=== PATIENT | male | born 1975 | race Caucasian/White ===

== ENCOUNTER 2021-03-31 16:04 | Emergency (ER) | payer SELFPAY ==
[~2021-03-31] VITALS: Ht 190.5 cm; Wt 103.4 kg
[2021-03-31] MEDS ORDERED: OMEPRAZOLE20 MG PO (16:20)
--- NOTE | 2021-04-01 13:34 | EKG ---
[facility] [address] [facility] [place], [place] [address] Signed Normal sinus rhythm Normal ECG Confirmed by WAYLON FOX MD ([id number]) on 04/01/2021 1:34:31 PM Electronically Signed By: WAYLON FOX MD 04/01/21 1334 PATIENT NAME: CHRIS YODER Electrocardiogram DATE OF : 75 PHYSICIAN: WAYLON FOX MD REPORT #: [id number] REPORT IS CONFIDENTIAL AND NOT TO BE RELEASED WITHOUT AUTHORIZATION
== END 2021-03-31 20:40 | disposition home or self-care (01) ==
LOC: ED 16:04
DX: R07.9 Chest pain, unspecified (principal); Z87.891 Personal history of nicotine dependence; Z79.899 Other long term (current) drug therapy
CPT/HCPCS: 71045; 80053; 83735; 84484; 85025; 93005; 93010; 99285-25

== ENCOUNTER 2024-06-29 19:32 | Emergency (ER) | payer OTHER ==
[~2024-06-29] VITALS: Ht 190.5 cm; Wt 108.0 kg
[~2024-06-29 19:32] MED LIST: OMEPRAZOLE20 MG PO
[2024-06-29 19:59] LABS: BASOPHILS 0.8 % (0-2); EOSINOPHILS 1.4 % (0-6); HEMATOCRIT 37.9 % (35.0-50.0); HEMOGLOBIN 13.2 g/dL (12.0-18.0); LYMPHOCYTES 24.2 % (24-44); MCH 29.9 (27-36); MCHC 34.7 g/dl (30-36); MCV 86.1 fl (81-99); MONOCYTES 9.8 % (0-12); NEUTROPHILS 63.8 % (39-80); PLATELET COUNT 292 K/uL (140-440); RDW 13.4 (10.5-15.0)
[2024-06-29] MEDS ORDERED: IBLOOD GLUCOSE TEST STRIP 1 EA TEST VI ONE (20:00)
[2024-06-29 20:20] LABS: ALBUMIN 3.9 g/dL (3.4-5.0); ALBUMIN/GLOBULIN RATIO 1.44 (1.1-2.4); ALCOHOL, MEDICAL <3 ng/dL (<3); ALKALINE PHOSPHATASE 129 U/L (46-116); ALT (SGPT) 86 U/L (14-59); ANION GAP 10.9 (7-21); AST (SGOT) 29 U/L (15-37); BILIRUBIN, TOTAL 0.6 ng/dL (0.2-1.0); BUN/CREATININE RATIO 14.04 (6.0-28.6); CARBON DIOXIDE 28 mmol/L (21-32); CHLORIDE 104 mmol/L (98-107); CREATININE, SERUM 1.21 mg/dL (0.70-1.30); GLOMERULAR FILTRATION RATE,EST 74 mL/min (>60); POTASSIUM 3.9 mmol/L (3.5-5.1); PROTEIN, TOTAL 6.6 g/dL (6.4-8.2); UREA NITROGEN 17 mg/dL (7-18)
[2024-06-29] MEDS ORDERED: LACTATED RINGER'S 1,000 ML IV ONE (21:00)
[2024-06-29 21:02] LABS: BILIRUBIN, URINE NEGATIVE (negative); BLOOD/HGB, URINE NEGATIVE (Negative); KETONE, URINE NEGATIVE (Negative); LEUK ESTERASE, URINE NEGATIVE (negative); NITRITE, URINE NEGATIVE (negative)
[2024-06-29] MEDS ORDERED: ASPIRIN 81 MG CHEW PO ONE (21:15)
[2024-06-29 21:27] LABS: AMPHETAMINES, URINE NEGATIVE (NEGATIVE); BARBITURATES, URINE NEGATIVE (NEGATIVE); BENZODIAZEPINE, URINE NEGATIVE (NEGATIVE); BUPRENORPHINE, URINE NEGATIVE (NEGATIVE); CANNABINOID, URINE NEGATIVE (NEGATIVE); COCAINE, URINE NEGATIVE (NEGATIVE); ECSTASY, URINE NEGATIVE (NEGATIVE); FENTANYL, URINE NEGATIVE (NEGATIVE); METHADONE, URINE NEGATIVE (NEGATIVE); OPIATES, URINE NEGATIVE (NEGATIVE); OXYCODONE, URINE NEGATIVE (NEGATIVE); PHENCYCLIDINE, URINE NEGATIVE (NEGATIVE)
[2024-06-29 23:51] VITALS: BP 133/93
--- NOTE | 2024-07-01 18:38 | EKG ---
[facility] [address] [facility] [place] [address] Signed Normal sinus rhythm Normal ECG When compared with ECG of 31-MAR-2021 16:12, Nonspecific T wave abnormality now evident in Inferior leads Confirmed by Homero Holloway MD ([id number]) on 07/01/2024 6:38:39 PM Electronically Signed By: HOMERO HOLLOWAY MD 07/01/241837 PATIENT NAME: BEBACHRIS Electrocardiogram DATE OF : 75 PHYSICIAN: HOMERO HOLLOWAY MD REPORT #: [id number] REPORT IS CONFIDENTIAL AND NOT TO BE RELEASED WITHOUT AUTHORIZATION
== END 2024-06-29 23:51 | disposition other institution, planned readmission (95) ==
LOC: ED 19:32
PROVIDERS: Internal Medicine
DX: I65.01 Occlusion and stenosis of right vertebral artery (principal); Z87.891 Personal history of nicotine dependence
CPT/HCPCS: 36415; 70450; 70496; 70498; 71045; 80053; 80307; 81003; 84484; 85025; 93005; 93010; 99285-25; A9270; G0480; J7121; Q9967